=== PATIENT | male | born 1965 | race Caucasian/White ===

== ENCOUNTER 2020-11-26 07:35 | Emergency (ER) | payer OTHER ==
[~2020-11-26] VITALS: Ht 172.7 cm; Wt 77.1 kg
[2020-11-26] MEDS ORDERED: OLANZAPINE10 MG PO (08:42)
== END 2020-11-26 08:46 | disposition home or self-care (01) ==
LOC: ED 07:35
DX: G62.9 Polyneuropathy, unspecified (principal); F17.200 Nicotine dependence, unspecified, uncomplicated; Z88.5 Allergy status to narcotic agent
CPT/HCPCS: 99283